=== PATIENT | male | born 1990 | race Caucasian/White ===

== ENCOUNTER 2018-09-17 17:11 | Emergency (ER) | payer SELFPAY ==
[~2018-09-17] VITALS: Ht 193 cm; Wt 118.0 kg
[~2018-09-17 17:11] MED LIST: HYDR-3927; IBUP-2030
[2018-09-17 17:15] VITALS: BP 176/92
== END 2018-09-17 18:14 | disposition home or self-care (01) ==
LOC: ER 17:11
DX: L30.1 Dyshidrosis [pompholyx] (principal); M54.10 Radiculopathy, site unspecified; M54.30 Sciatica, unspecified side; Z90.49 Acquired absence of other specified parts of digestive tract; Z79.899 Other long term (current) drug therapy
CPT/HCPCS: 99283

== ENCOUNTER 2018-09-19 10:04 | Emergency (ER) | payer MEDICAID ==
[~2018-09-19] VITALS: Ht 182.9 cm; Wt 136.0 kg
[2018-09-19] MEDS ORDERED: ACETAMINOPHEN 325MG TABLET PO STA (10:54)
[2018-09-19] MEDS ORDERED: SODIUM CHLORIDE 0.9% 1,000 ML IV ONE (10:54)
[2018-09-19 11:35] LABS: BASOPHILS % 0.2 % (0.0-2.0); EOSINOPHILS % 0.5 % (0.0-5.0); HEMATOCRIT. 43.7 % (42.0-52.0); HEMOGLOBIN. 14.8 g/dL (14.0-18.0); LYMPHOCYTES % 7.4 % (20.0-50.0); MEAN CORPUSCULAR HEMOGLOBIN 27.7 pg (28.0-32.0); MEAN CORPUSCULAR VOLUME 81.9 fL (80.0-94.0); MEAN PLATELET VOLUME 7.8 fl (7.4-10.4); MONOCYTES % 7.9 % (2.0-8.0); PLATELET 227 x1000/uL (130-400); RED BLOOD CELL COUNT 5.33 mill/uL (4.7-6.1); RED CELL DISTRIBUTION WIDTH 14.9 % (11.6-14.6)
[2018-09-19 11:38] LABS: CHLORIDE 101 mEq/L (98-107)
[2018-09-19 12:27] LABS: CLARITY URINE CLEAR (CLEAR); COLOR URINE YELLOW (YELLOW); KETONES URINE NEGATIVE (NEGATIVE); LEUKOCYTE ESTERASE URINE NEGATIVE (NEGATIVE); NITRITE URINE NEGATIVE (NEGATIVE); OCCULT BLOOD URINE NEGATIVE (NEGATIVE); PH URINE 5.5 (4.5-8.0); PROTEIN URINE NEGATIVE (NEGATIVE); SPECIFIC GRAVITY URINE 1.021 (1.005-1.030); UROBILINOGEN URINE 0.2 E.U./dL (0.2-1.0)
[2018-09-19 14:04] VITALS: BP 132/72
== END 2018-09-19 14:14 | disposition home or self-care (01) ==
LOC: ER 10:04
DX: B34.9 Viral infection, unspecified (principal); R50.9 Fever, unspecified; M54.30 Sciatica, unspecified side; Z90.49 Acquired absence of other specified parts of digestive tract
CPT/HCPCS: 36415; 71045; 80053; 81003; 85025; 87040; 96360; 96361; 99284; J7030

== ENCOUNTER 2018-12-12 08:55 | Emergency (ER) | payer SELFPAY ==
[~2018-12-12] VITALS: Ht 190.5 cm; Wt 152.0 kg
[2018-12-12 09:17] VITALS: BP 159/99
[2018-12-12] MEDS ORDERED: IBUPROFEN 800MG TABLET PO ONE (10:15)
== END 2018-12-12 10:41 | disposition home or self-care (01) ==
LOC: ER 08:55
DX: M25.522 Pain in left elbow (principal); M54.30 Sciatica, unspecified side; Z90.49 Acquired absence of other specified parts of digestive tract
CPT/HCPCS: 73070; 99283

== ENCOUNTER 2019-03-03 01:13 | Emergency (ER) | payer SELFPAY ==
[~2019-03-03] VITALS: Ht 190.5 cm; Wt 154.0 kg
[2019-03-03] MEDS ORDERED: KETOROLAC 60MG/2ML VIAL IM ONE (07:30)
[2019-03-03] MEDS ORDERED: ACETAMINOPHEN 325MG TABLET PO ONE (07:30)
[2019-03-03 09:18] LABS: CLARITY URINE CLEAR (CLEAR); COLOR URINE DARK YELLOW (YELLOW); KETONES URINE NEGATIVE (NEGATIVE); NITRITE URINE NEGATIVE (NEGATIVE); OCCULT BLOOD URINE NEGATIVE (NEGATIVE); PROTEIN URINE 1+ (NEGATIVE); SPECIFIC GRAVITY URINE 1.036 (1.005-1.030); UROBILINOGEN URINE 0.2 E.U./dL (0.2-1.0)
[2019-03-03 09:19] LABS: LEUKOCYTE ESTERASE URINE NEGATIVE (NEGATIVE)
[2019-03-03 09:54] VITALS: BP 126/76
== END 2019-03-03 09:55 | disposition home or self-care (01) ==
LOC: ER 01:13
DX: R07.81 Pleurodynia (principal); M54.30 Sciatica, unspecified side; Z90.49 Acquired absence of other specified parts of digestive tract
CPT/HCPCS: 71045; 71100; 81003; 96372; 99284; J1885

== ENCOUNTER 2019-08-07 18:46 | Emergency (ER) | payer MEDICAID ==
[~2019-08-07] VITALS: Ht 172.7 cm; Wt 105.0 kg
[2019-08-07] MEDS ORDERED: SODIUM CHLORIDE 0.9% 1,000 ML IV ONE (19:16)
[2019-08-07 19:31] LABS: BASOPHILS % 0.7 % (0.0-2.0); EOSINOPHILS % 1.5 % (0.0-5.0); HEMATOCRIT. 43.8 % (42.0-52.0); HEMOGLOBIN. 15.2 g/dL (14.0-18.0); LYMPHOCYTES % 25.5 % (20.0-50.0); MEAN CORPUSCULAR VOLUME 80.6 fL (80.0-94.0); MONOCYTES % 6.7 % (2.0-8.0); NEUTROPHILS % 65.6 % (40.0-76.0); PLATELET 209 x1000/uL (130-400); RED BLOOD CELL COUNT 5.43 mill/uL (4.7-6.1); RED CELL DISTRIBUTION WIDTH 14.3 % (11.6-14.6)
[2019-08-07 19:52] LABS: CHLORIDE 95 mEq/L (98-107)
[2019-08-07 19:59] LABS: BETA HYDROXYBUTYRATE 1.5 mMol/L (0.0-0.3)
[2019-08-07 20:02] LABS: BG CARBOXYHEMOGLOBIN 0.2 % (0.5-1.5); BG DEOXYHEMOGLOBIN 3.6 % (0.0-5.0); BG FRACTION INSPIRED OXYGEN 21; BG METHEMOGLOBIN 0.3 % (0.0-1.5); BG OXYGEN SATURATION 96.4 % (92.0-98.5); BG OXYHEMOGLOBIN 95.9 % (94.0-97.0); BG PCO2 38.2 mmHg (35.0-45.0); BG PH 7.358 (7.350-7.450); BG PO2 86.7 mmHg (75.0-100.0); BG SAMPLE SITE RIGHT RADIAL; BG TOTAL HEMOGLOBIN 14.8 g/dL (12.0-18.0); BG VENT MODE ROOM AIR
[2019-08-07] MEDS ORDERED: INSULIN REGULAR (HUMULIN R) 300UNITS/3ML SUBCUT ONE (20:45)
[2019-08-08 03:18] VITALS: BP 122/78
== END 2019-08-08 03:33 | disposition short-term general hospital (02) ==
LOC: ER 18:46
DX: E11.65 Type 2 diabetes mellitus with hyperglycemia (principal); R35.8 Other polyuria; Z79.899 Other long term (current) drug therapy; Z90.49 Acquired absence of other specified parts of digestive tract
CPT/HCPCS: 36415; 36600; 80053; 82010; 82375; 82805; 82962; 85025; 96360; 96372; 99285; J1815; J7030

== ENCOUNTER 2020-12-29 23:54 | Emergency (ER) | payer MEDICAID, OTHER ==
[~2020-12-29] VITALS: Ht 185.4 cm; Wt 121.0 kg
[2020-12-30] MEDS ORDERED: MORPHINE SULFATE 4 MG/ML CPJ (NOT FOR IM USE) IV STA (00:19)
[2020-12-30] MEDS ORDERED: ONDANSETRON HCL 4MG/2ML INJ IV STA (00:19)
[2020-12-30] MEDS ORDERED: SODIUM CHLORIDE 0.9% 1,000 ML IV ONE (00:30)
[2020-12-30 00:43] LABS: BASOPHILS % 0.5 % (0.0-2.0); EOSINOPHILS % 1.8 % (0.0-5.0); HEMATOCRIT. 43.3 % (42.0-52.0); HEMOGLOBIN. 14.5 g/dL (14.0-18.0); MEAN CORPUSCULAR HEMOGLOBIN 27.3 pg (28.0-32.0); MEAN CORPUSCULAR VOLUME 81.4 fL (80.0-94.0); MONOCYTES % 8.1 % (2.0-8.0); NEUTROPHILS % 61.6 % (40.0-76.0); PLATELET 218 x1000/uL (130-400); RED BLOOD CELL COUNT 5.32 mill/uL (4.7-6.1); RED CELL DISTRIBUTION WIDTH 14.9 % (11.6-14.6)
[2020-12-30] MEDS ORDERED: MORPHINE SULFATE 2 MG/ML CPJ (NOT FOR IM USE) IV SCH (00:45)
[2020-12-30 00:56] LABS: CHLORIDE 108 mEq/L (98-107)
[2020-12-30 01:13] LABS: PROTHROMBIN TIME 10.8 sec (9.6-11.0)
[2020-12-30] MEDS ORDERED: FAMO-135 MT (02:23)
[2020-12-30 02:50] VITALS: BP 132/84
== END 2020-12-30 02:50 | disposition home or self-care (01) ==
LOC: ER 23:54
DX: E11.43 Type 2 diabetes mellitus with diabetic autonomic (poly)neuropathy (principal); K31.84 Gastroparesis; M54.30 Sciatica, unspecified side; Z90.49 Acquired absence of other specified parts of digestive tract
CPT/HCPCS: 36415; 74176; 80053; 83690; 84484; 85025; 85610; 93005; 96361; 96374; 96375; 99285; J2270; J2405; J7030; Z7610

== ENCOUNTER 2021-04-02 23:19 | Emergency (ER) | payer MEDICAID, OTHER ==
[~2021-04-02] VITALS: Ht 188 cm; Wt 141.0 kg
[~2021-04-02 23:19] MED LIST changes: +FAMO-135 MT
[2021-04-03 00:06] LABS: BASOPHILS % 0.7 % (0.0-2.0); EOSINOPHILS % 1.7 % (0.0-5.0); HEMATOCRIT. 45.2 % (42.0-52.0); HEMOGLOBIN. 15.4 g/dL (14.0-18.0); LYMPHOCYTES % 26.6 % (20.0-50.0); MEAN CORPUSCULAR HEMOGLOBIN 27.4 pg (28.0-32.0); MEAN CORPUSCULAR VOLUME 80.7 fL (80.0-94.0); MONOCYTES % 8.4 % (2.0-8.0); NEUTROPHILS % 62.6 % (40.0-76.0); PLATELET 216 x1000/uL (130-400); RED CELL DISTRIBUTION WIDTH 14.4 % (11.6-14.6)
[2021-04-03 00:10] LABS: CHLORIDE 104 mEq/L (98-107)
[2021-04-03 00:35] LABS: CLARITY URINE CLEAR (CLEAR); COLOR URINE YELLOW (YELLOW); KETONES URINE TRACE (NEGATIVE); LEUKOCYTE ESTERASE URINE 2+ (NEGATIVE); NITRITE URINE NEGATIVE (NEGATIVE); OCCULT BLOOD URINE TRACE (NEGATIVE); PH URINE 5.5 (4.5-8.0); PROTEIN URINE NEGATIVE (NEGATIVE); SPECIFIC GRAVITY URINE 1.025 (1.005-1.030); UROBILINOGEN URINE 0.2 E.U./dL (0.2-1.0)
[2021-04-03] MEDS ORDERED: CEFP200T13 MT (01:08)
[2021-04-03 01:48] VITALS: BP 138/92
== END 2021-04-03 03:01 | disposition home or self-care (01) ==
LOC: ER 23:19
DX: N39.0 Urinary tract infection, site not specified (principal); I10 Essential (primary) hypertension; E11.9 Type 2 diabetes mellitus without complications; Z90.49 Acquired absence of other specified parts of digestive tract; Z79.899 Other long term (current) drug therapy
CPT/HCPCS: 36415; 71045; 80053; 81003; 82962; 84443; 85025; 93005; 99285

== ENCOUNTER 2021-06-22 23:26 | Emergency (ER) | payer MEDICAID, OTHER ==
[~2021-06-22] VITALS: Ht 185.4 cm; Wt 144.3 kg
[~2021-06-22 23:26] MED LIST changes: +CEFP200T13 MT
[2021-06-23 00:07] VITALS: BP 143/88
== END 2021-06-23 03:12 | disposition home or self-care (01) ==
LOC: ER 23:26
DX: R22.32 Localized swelling, mass and lump, left upper limb (principal); E11.9 Type 2 diabetes mellitus without complications; Z90.49 Acquired absence of other specified parts of digestive tract; Z79.4 Long term (current) use of insulin
CPT/HCPCS: 99281

== ENCOUNTER 2021-09-02 14:46 | Emergency (ER) | payer MEDICAID ==
[~2021-09-02] VITALS: Ht 188 cm; Wt 142.0 kg
[2021-09-02 14:52] VITALS: BP 177/95
[2021-09-02 16:12] LABS: BASOPHILS % 0.5 % (0.0-2.0); EOSINOPHILS % 1.7 % (0.0-5.0); HEMATOCRIT. 45.6 % (42.0-52.0); LYMPHOCYTES % 22.3 % (20.0-50.0); MEAN CORPUSCULAR HEMOGLOBIN 27.1 pg (28.0-32.0); MEAN CORPUSCULAR VOLUME 82.4 fL (80.0-94.0); MEAN PLATELET VOLUME 8.1 fl (7.4-10.4); MONOCYTES % 8.1 % (2.0-8.0); NEUTROPHILS % 67.4 % (40.0-76.0); PLATELET 218 x1000/uL (130-400); RED BLOOD CELL COUNT 5.53 mill/uL (4.7-6.1); RED CELL DISTRIBUTION WIDTH 14.2 % (11.6-14.6)
[2021-09-02 16:21] LABS: CHLORIDE 106 mEq/L (98-107)
== END 2021-09-02 19:07 | disposition home or self-care (01) ==
LOC: ER 14:46
DX: I10 Essential (primary) hypertension (principal); R07.89 Other chest pain; F41.9 Anxiety disorder, unspecified; E11.9 Type 2 diabetes mellitus without complications; Z90.49 Acquired absence of other specified parts of digestive tract
CPT/HCPCS: 36415; 71045; 80053; 83880; 84484; 85025; 93005; 99285

== ENCOUNTER 2022-02-14 01:51 | Emergency (ER) | payer MEDICAID, OTHER ==
[~2022-02-14] VITALS: Ht 190.5 cm; Wt 150.0 kg
[2022-02-14 03:47] VITALS: BP 107/79
[2022-02-14] MEDS ORDERED: PSEU120T56 MT (04:49)
[2022-02-14] MEDS ORDERED: VISCOUS LIDOCAINE 2% 15 ML UDC MM STA (04:49)
[2022-02-14] MEDS ORDERED: BENZ100C86 MT (04:49)
[2022-02-14] MEDS ORDERED: IBUPROFEN 600MG TABLET PO ONE (05:00)
== END 2022-02-14 05:21 | disposition home or self-care (01) ==
LOC: ER 01:51
DX: J06.9 Acute upper respiratory infection, unspecified (principal); Z20.822 Contact with and (suspected) exposure to COVID-19; Z90.49 Acquired absence of other specified parts of digestive tract
CPT/HCPCS: 71045; 87426; 87804; 99284; C9803

== ENCOUNTER 2022-08-12 18:51 | Emergency (ER) | payer OTHER ==
[~2022-08-12 18:51] MED LIST changes: +BENZ100C86 MT; +PSEU120T56 MT
== END 2022-08-13 01:25 | disposition left against medical advice (07) ==
LOC: ER 18:51
DX: Z53.21 Procedure and treatment not carried out due to patient leaving prior to being seen by health care provider (principal)
CPT/HCPCS: 99281

== ENCOUNTER 2023-06-11 15:04 | Emergency (ER) | payer SELFPAY ==
[~2023-06-11] VITALS: Ht 190.5 cm; Wt 158.0 kg
[2023-06-11 15:09] VITALS: O2SAT 98
[2023-06-11] MEDS ORDERED: DEXAMETHASONE 1MG TABLET PO ONE (17:30)
[2023-06-11] MEDS: DEXAMETHASONE 4MG TABLET PO NR (18:01)
[2023-06-11] MEDS: DEXAMETHASONE 6MG TABLET PO NR (18:01)
[2023-06-11] MEDS ORDERED: ERYT1OIN6 EACHEYE (18:40)
[2023-06-11 19:08] VITALS: BP 138/89; PULSE 96; RESP 18; TEMP 98.2
== END 2023-06-11 19:10 | disposition home or self-care (01) ==
LOC: ER 15:04
DX: B34.9 Viral infection, unspecified (principal); H10.9 Unspecified conjunctivitis; E11.9 Type 2 diabetes mellitus without complications; Z90.49 Acquired absence of other specified parts of digestive tract; Z20.822 Contact with and (suspected) exposure to COVID-19
CPT/HCPCS: 99284; 71045; 87426; 87430; 87420; 87070; 87804 ×2; J8540

== ENCOUNTER 2024-02-09 00:46 | Emergency (ER) | payer OTHER ==
[~2024-02-09] VITALS: Ht 188 cm; Wt 134.5 kg
[~2024-02-09 00:46] MED LIST changes: +ERYT1OIN6 EACHEYE
[2024-02-09 01:34] VITALS: O2SAT 96
[2024-02-09] MEDS: HYDROCODONE/ACETAMINOPHEN 5/325MG TABLET PO STA (01:45)
[2024-02-09 02:17] LABS: BASOPHILS % 0.3 % (0.0-2.0); EOSINOPHILS % 1.2 % (0.0-5.0); HEMATOCRIT. 46.5 % (42.0-52.0); HEMOGLOBIN. 15.5 g/dL (14.0-18.0); LYMPHOCYTES % 12.6 % (20.0-50.0); MEAN CORPUSCULAR HEMOGLOBIN 27.6 pg (28.0-32.0); MEAN CORPUSCULAR HGB CONC 33.4 g/dL (31.0-37.0); MEAN CORPUSCULAR VOLUME 82.7 fL (80.0-94.0); MEAN PLATELET VOLUME 8.3 fl (7.4-10.4); MONOCYTES % 9.7 % (2.0-8.0); NEUTROPHILS % 76.2 % (40.0-76.0); PLATELET 216 x1000/uL (130-400); RED BLOOD CELL COUNT 5.63 mill/uL (4.7-6.1); RED CELL DISTRIBUTION WIDTH 14.3 % (11.6-14.6); WHITE BLOOD COUNT 8.5 x1000/uL (4.5-11.0)
[2024-02-09 02:23] LABS: CHLORIDE 103 mEq/L (98-107); POTASSIUM 4.1 mEq/L (3.5-5.1); SODIUM 140 mEq/L (136-145)
[2024-02-09 02:24] LABS: CARBON DIOXIDE 30 mEq/L (21-32)
[2024-02-09 02:25] LABS: CALCIUM 9.6 mg/dL (8.7-10.4)
[2024-02-09 02:29] LABS: CREATININE 0.9 mg/dL (0.6-1.3); GLUCOSE 187 mg/dL (70-105); UREA NITROGEN BLOOD 17 mg/dL (9-23)
[2024-02-09 02:31] LABS: ALANINE AMINOTRANSFERASE 23 IU/L (10-49); ALBUMIN 4.5 g/dL (3.2-4.8); ASPARTATE AMINOTRANSFERASE 19 IU/L (<34); BILIRUBIN TOTAL 0.5 mg/dL (0.1-1.0)
[2024-02-09 02:32] LABS: PROTEIN TOTAL 7.3 g/dL (6.0-8.3)
[2024-02-09 02:39] LABS: CLARITY URINE CLEAR (CLEAR); COLOR URINE YELLOW (YELLOW); GLUCOSE URINE NEGATIVE (NEGATIVE); KETONES URINE TRACE (NEGATIVE); LEUKOCYTE ESTERASE URINE NEGATIVE (NEGATIVE); NITRITE URINE NEGATIVE (NEGATIVE); OCCULT BLOOD URINE NEGATIVE (NEGATIVE); PH URINE 5.5 (4.5-8.0); PROTEIN URINE 1+ (NEGATIVE); SPECIFIC GRAVITY URINE 1.033 (1.005-1.030); UROBILINOGEN URINE 0.2 E.U./dL (0.2-1.0)
[2024-02-09 03:32] LABS: SQUAMOUS EPITHELIAL CELL URINE FEW /lpf (RARE/1+)
[2024-02-09 03:33] LABS: RBC URINE 0-2 /hpf (0-2); WBC URINE 0-2 /hpf (0-2)
[2024-02-09 03:35] LABS: BACTERIA URINE NONE SEEN
[2024-02-09 05:26] VITALS: BP 157/89; PULSE 89; RESP 18; TEMP 36.72516; O2SAT 98
[2024-02-09] MEDS ORDERED: IOHEXOL-350 100 ML BOTTLE ONE (05:31)
== END 2024-02-09 05:27 | disposition home or self-care (01) ==
LOC: ER 00:46
DX: R10.11 Right upper quadrant pain (principal); E11.9 Type 2 diabetes mellitus without complications; Z90.49 Acquired absence of other specified parts of digestive tract
CPT/HCPCS: 80053; 81003; 83690; 85025; 36415; 74174; 71275; 74176; 99285; Q9967; Z7610

== ENCOUNTER 2024-04-19 14:48 | Emergency (ER) | payer OTHER ==
[~2024-04-19] VITALS: Ht 190.5 cm; Wt 136.1 kg
[2024-04-19 15:02] VITALS: BP 157/95; PULSE 82; RESP 16; TEMP 36.7; O2SAT 98
[2024-04-19] MEDS: LIDOCAINE HCL/PF 1% 10 MG/ML 5ML VIAL INFIL ONE (16:09)
[2024-04-19] MEDS: BACITRACIN ZINC OINT UDPKT TOP ONE (16:09)
[2024-04-19] MEDS ORDERED: SULF1TAB48 PO (17:23)
== END 2024-04-19 17:37 | disposition home or self-care (01) ==
LOC: ER 14:48
DX: L03.032 Cellulitis of left toe (principal); E11.9 Type 2 diabetes mellitus without complications; Z79.899 Other long term (current) drug therapy; Z90.49 Acquired absence of other specified parts of digestive tract
CPT/HCPCS: 99283; 10060; J2003

== ENCOUNTER 2024-05-12 14:49 | Emergency (ER) | payer OTHER ==
[~2024-05-12] VITALS: Ht 190.5 cm; Wt 136.0 kg
[~2024-05-12 14:49] MED LIST changes: +SULF1TAB48 PO
[2024-05-12 15:11] VITALS: O2SAT 99
[2024-05-12 15:14] VITALS: BP 147/96; PULSE 72; RESP 18; TEMP 36.9; O2SAT 97
[2024-05-12] MEDS ORDERED: CEPH500C2 MT (15:55)
[2024-05-12] MEDS ORDERED: SULF1TAB48 MT (15:55)
== END 2024-05-12 16:07 | disposition home or self-care (01) ==
LOC: ER 14:49
DX: L08.9 Local infection of the skin and subcutaneous tissue, unspecified (principal); L60.0 Ingrowing nail; E11.628 Type 2 diabetes mellitus with other skin complications; Z90.49 Acquired absence of other specified parts of digestive tract; Z79.899 Other long term (current) drug therapy
CPT/HCPCS: 99283

== ENCOUNTER 2025-01-26 05:41 | Emergency (ER) | payer OTHER ==
[~2025-01-26] VITALS: Ht 190.5 cm; Wt 127.0 kg
[~2025-01-26 05:41] MED LIST changes: +CEPH500C2 MT; +SULF1TAB48 MT
[2025-01-26 05:52] VITALS: TEMP 37; O2SAT 97
[2025-01-26 07:17] LABS: BASOPHILS % 0.5 % (0.0-2.0); EOSINOPHILS % 1.6 % (0.0-5.0); HEMATOCRIT. 46.7 % (42.0-52.0); HEMOGLOBIN. 15.4 g/dL (14.0-18.0); LYMPHOCYTES % 27.7 % (20.0-50.0); MEAN PLATELET VOLUME 8.2 fl (7.4-10.4); MONOCYTES % 8.8 % (2.0-8.0); NEUTROPHILS % 61.4 % (40.0-76.0); PLATELET 194 x1000/uL (130-400); RED BLOOD CELL COUNT 5.62 mill/uL (4.7-6.1); RED CELL DISTRIBUTION WIDTH 13.6 % (11.6-14.6)
[2025-01-26 07:30] LABS: CREATININE 0.8 mg/dL (0.6-1.3)
[2025-01-26 07:31] LABS: UREA NITROGEN BLOOD 6 mg/dL (9-23)
[2025-01-26] MEDS: KETOROLAC 15MG/ML VIAL IV ONE (07:45)
[2025-01-26] MEDS ORDERED: IOHEXOL-350 100 ML BOTTLE ONE (09:25)
[2025-01-26] MEDS ORDERED: TOPUD PO (09:57)
[2025-01-26 10:16] VITALS: BP 113/88; PULSE 68; RESP 16; O2SAT 100
== END 2025-01-26 10:30 | disposition home or self-care (01) ==
LOC: ER 05:41
DX: M54.2 Cervicalgia (principal); R42 Dizziness and giddiness; E11.9 Type 2 diabetes mellitus without complications; Z90.49 Acquired absence of other specified parts of digestive tract
CPT/HCPCS: 80048; 85025; 36415; 70498; 96374; 99285; Q9967; J1885; Z7610